=== PATIENT | male | born 1970 | race Caucasian/White ===

== ENCOUNTER 2021-04-05 01:58 | Emergency (ER) | payer MEDICAID ==
[~2021-04-05] VITALS: Ht 177.8 cm; Wt 109.1 kg
[2021-04-05] MEDS ORDERED: LIDOCAINE 2% 5 ML JELLY TP ONE (02:45)
[2021-04-05] MEDS ORDERED: LIDOCAINE 1% 10 ML VIAL SQ ONE (02:45)
[2021-04-05] MEDS ORDERED: LIDOCAINE/PRILOCAINE 2.5% 30 GM CREAM TP ONE (03:15)
[2021-04-05 04:15] VITALS: BP 141/89
== END 2021-04-05 05:05 | disposition home or self-care (01) ==
LOC: EMS 02:05
DX: S31.21XA Laceration without foreign body of penis, initial encounter (principal); E11.9 Type 2 diabetes mellitus without complications; I10 Essential (primary) hypertension; F17.210 Nicotine dependence, cigarettes, uncomplicated; X58.XXXA Exposure to other specified factors, initial encounter; Y93.89 Activity, other specified; Y92.89 Other specified places as the place of occurrence of the external cause; Y99.8 Other external cause status
CPT/HCPCS: 12002; 82962; 99282